=== PATIENT | female | born 1985 | race Caucasian/White ===

== ENCOUNTER 2018-03-04 23:45 | Emergency (ER) | payer OTHER ==
[~2018-03-04] VITALS: Ht 160 cm; Wt 63.5 kg
== END 2018-03-05 00:30 | disposition left against medical advice (07) ==
LOC: ER 23:45
DX: N89.8 Other specified noninflammatory disorders of vagina (principal)

== ENCOUNTER 2018-07-19 11:24 | Emergency (ER) | payer OTHER ==
[~2018-07-19] VITALS: Ht 160 cm; Wt 65.8 kg
--- NOTE | 2018-07-19 13:00 | Diagnostic Imaging Report ---
EXAMINATION: PA and lateral views of the chest. COMPARISON: None CLINICAL HISTORY: Cough DISCUSSION: Lungs are well-inflated and without consolidation, pleural effusion, or pneumothorax. Cardiomediastinal contour and pulmonary vasculature are within normal limits. No acute osseous abnormality. IMPRESSION: No acute cardiopulmonary abnormalities. Signed by: Dr. Alec Quiroz M.D. on 07/19/2018 12:56 PM
[2018-07-19 14:31] VITALS: BP 117/79
== END 2018-07-19 14:26 | disposition home or self-care (01) ==
LOC: ER 11:24
DX: R05 Cough (principal); J20.8 Acute bronchitis due to other specified organisms
CPT/HCPCS: 71046; 99283

== ENCOUNTER 2021-05-01 19:48 | Emergency (ER) | payer SELFPAY ==
[~2021-05-01] VITALS: Ht 160 cm; Wt 65.8 kg
[2021-05-01] MEDS ORDERED: FAMOTIDINE 20 MG TAB PO ONE (20:15)
[2021-05-01] MEDS ORDERED: MAGNESIUM/ALUMINUM/SIMETHICONE 30 ML UDC PO ONE (20:15)
== END 2021-05-01 20:49 | disposition home or self-care (01) ==
LOC: ER 20:35
DX: R10.13 Epigastric pain (principal); K29.70 Gastritis, unspecified, without bleeding
CPT/HCPCS: 99283

== ENCOUNTER 2021-06-06 14:29 | Emergency (ER) | payer SELFPAY ==
[~2021-06-06] VITALS: Ht 160 cm; Wt 65.8 kg
[2021-06-06] MEDS ORDERED: PROAIR DIGIHAL90 MCG IH (15:20)
== END 2021-06-06 15:48 | disposition home or self-care (01) ==
LOC: ER 15:09
DX: R07.9 Chest pain, unspecified (principal); R06.02 Shortness of breath
CPT/HCPCS: 36415; 71046; 85379; 93005; 99284

== ENCOUNTER → 2021-07-13 | Day surgery (SDC) | payer OTHER ==
[~2021-07-13] MED LIST: PROAIR DIGIHAL90 MCG IH
[2021-07-13 08:20] VITALS: BP 106/65
== END | disposition home or self-care (01) ==
LOC: OR 05:36
PROVIDERS: ATTEND Internal Medicine Gastroenterology
DX: K29.70 Gastritis, unspecified, without bleeding (principal); K20.90 Esophagitis, unspecified without bleeding; K21.9 Gastro-esophageal reflux disease without esophagitis; Z01.812 Encounter for preprocedural laboratory examination; Z20.822 Contact with and (suspected) exposure to COVID-19; Z87.19 Personal history of other diseases of the digestive system; Z86.16 Personal history of COVID-19; Z87.891 Personal history of nicotine dependence
CPT/HCPCS: 43239; 43450; 81025; U0002

== ENCOUNTER → 2024-08-09 | Day surgery (SDC) | payer BC ==
[~2024-08-09] MED LIST changes: +DIGESTIVE ENZY220 MG; +FENTANYL CITRATE/PF 100MCG/2 ML INJ ONE; +GLUCAGON FOR INJ 1 MG VIAL ONE; +HYOSCYAMINE SULFATE 0.5 MG/ML INJ ONE; +LIDOCAINE HCL 2% LOCAL INJ 5 ML SDV VIAL INJ ONE; +MILK THISTLE175 M2; +PROBIOTIC; +PROPOFOL IV EMULSION 10 MG/ML 20 ML VIAL ONE; +PROPOFOL IV EMULSION 10 MG/ML 50 ML VIAL IV ONE
[2024-08-09] MEDS: LACTATED RINGER'S 1,000 ML ONE (10:18)
[2024-08-09] MEDS: ONDANSETRON HCL INJ 2MG/ML 2ML 2 MG/ML VIAL ONE (10:18)
[2024-08-09 11:45] VITALS: BP 114/75; PULSE 90; RESP 16; TEMP 97.6; O2SAT 98
[2024-08-09 12:52] LABS: WBC,FECAL (FECAL LACTOFERRIN) NEGATIVE (NEGATIVE)
[2024-08-13 07:24] LABS: ENDOMYSIAL ANTIBODIES, IGA Negative (Negative)
[2024-08-13 09:04] LABS: IMMUNOGLOBULIN A 249 mg/dL (87-352); TISSUE TRANSGLUTAMINASE IGA AB <2 U/mL (0-3)
== END | disposition home or self-care (01) ==
LOC: OR 09:33
PROVIDERS: ATTEND Internal Medicine Gastroenterology
DX: K29.70 Gastritis, unspecified, without bleeding (principal); K20.90 Esophagitis, unspecified without bleeding; K62.89 Other specified diseases of anus and rectum; K21.9 Gastro-esophageal reflux disease without esophagitis; K64.8 Other hemorrhoids; Z87.19 Personal history of other diseases of the digestive system; Z68.26 Body mass index [BMI] 26.0-26.9, adult
CPT/HCPCS: 43239; 45380; 81025; 82784; 83516; 83630; 83993; 86140; 86256; 87045; 87177; 87324; 87328; 87449; J1610; J1980; J2001; J2405; J2470; J2704 ×2; J3010; J7121